=== PATIENT | female | born 1995 | race Caucasian/White ===

== ENCOUNTER 2024-04-18 01:27 | Emergency (ER) | payer SELFPAY ==
[~2024-04-18] VITALS: Ht 170.2 cm; Wt 75.0 kg
[2024-04-18 01:44] VITALS: BP 124/77; PULSE 105; RESP 16; TEMP 98.4; O2SAT 100
== END 2024-04-18 04:18 | disposition left against medical advice (07) ==
LOC: ER 01:31
DX: R51.9 Headache, unspecified (principal); Z53.21 Procedure and treatment not carried out due to patient leaving prior to being seen by health care provider
CPT/HCPCS: 99283